=== PATIENT | male | born 1990 | race Caucasian/White ===

== ENCOUNTER 2019-02-11 03:35 | Emergency (ER) | payer MEDICAID, SELFPAY ==
[2019-02-11 03:41] VITALS: BP 128/87; PULSE 84; RESP 20; TEMP 36.1; O2SAT 98
[2019-02-11 03:48] VITALS: RESP 20
--- NOTE | 2019-02-11 04:02 | W.ED.GENAD ---
Discharge Plan Disposition Patient Disposition: HOME Condition: Good Discharge Details Chief Complaint: Cellulitis Clinical Impression: Abscess, perirectal Primary Care Provider: Ray Yanez ED Provider: Paul Angel [place] Meds and New Rx's Prescriptions: New acetaminophen 500 mg capsule 1,000 mg PO Q6H PRN (Reason: pain) Qty: 30 RF: 0 sulfamethoxazole-trimethoprim 800-160 mg tablet 1 tab PO BID Qty: 20 RF: 0 Changed ibuprofen 200 MG tablet 600 mg PO Q6H PRNQty: 0 RF: 0 Discontinued acetaminophen 650 MG tablet extended release 1 tab PO PRN PRNRF: 0 Discharge Instructions Additional Instructions: Use warm compresses and sitz bath over the weekend. Ibuprofen and acetaminophen as directed for pain. Bactrim twice a day for infection. Follow-up with surgery on Wednesday. Return to ED at any time if increased pain, fever, shakes, other concerns. Referrals: Sharon Borja MD [ [facility] STAFF PHYSICIAN] - Medical Decision Making Patient presents with what is likely a perirectal abscess. He describes previously having what sounds like a pilonidal cyst, but subsequently all of his pain and swelling has been in the perirectal area. He has no obvious external swelling or fluctuance but has significant tenderness and cannot tolerate AMBROSE. Has no history of inflammatory bowel disease. Will obtain pelvic CT with IV contrast to evaluate the extent of what I feel is a probable perirectal abscess. Patient was given Toradol for discomfort. 5:15 - CT scan shows a 3 x 1 x 2.5 cm collection likely abscess. I spoke to radiology directly and he felt that likely area would drain something if opened. Discussed options with patient. He needs to go to work today and wants to see if it will open on own again like in the past. Discussed risk of not opening an abscess and patient getting sicker and septic. Patient understand. He also reports that once in the past, he was seen over at [facility] after abscess opened and they sent the drainage for culture. He reports that this grew out MRSA and he was switched to Bactrim. I discussed case with surgery, Dr. Borja. Patient will be started on Bactrim this morning. He is asked to use warm compresses and Sitz baths. He will use Tylenol and Motrin for pain as he plans on working today. Will have him follow up with surgery on Wednesday. Return to ED over the weekend if worse. HPI General Mode of arrival: ambulatory. Date/Time Provider Initiated Documentation: 02/11/19 03:44. Limitations to Documentation: no limitations. Information obtained by: patient. HPI Narrative: Patient presents to ED with complaint of rectal pain. Patient reports similar problem in the past. Last time this occurred was in the fall. He actually drove to the ED but by the time he got here the area had opened up and drained on its own. He states that it recurred in the last 2 days. He had thought initially that it was related to being constipated and needing to strain to go to the bathroom. He cannot sleep because of pain and he came in this morning for evaluation. He denies any fevers. He denies any abdominal pain. He denies any diarrhea. He has no history of Crohn's or ulcerative colitis. He has not had this evaluated previously. Related Data Home Medications Medication Instructions Recorded Confirmed acetaminophen 1,000 mg PO Q6H PRN #30 cap 02/11/19 ibuprofen 600 mg PO Q6H PRN #0 tab 02/11/19 02/11/19 sulfamethoxazole-trimethoprim 1 tab PO BID #20 tab 02/11/19 Previous Rx's Medication Instructions Recorded acetaminophen 1,000 mg PO Q6H PRN #30 cap 02/11/19 ibuprofen 600 mg PO Q6H PRN #0 tab 02/11/19 sulfamethoxazole-trimethoprim 1 tab PO BID #20 tab 02/11/19 Allergies Allergy/AdvReac Type Severity Reaction Status Date / Time No Known Allergies Allergy Unverified 02/11/19 03:47 General Stated Complaint: GenMedical CARLY: 4 Review of Systems Review of Systems As documented in HPI otherwise negative as below. Const: no fever, chills, weakness Resp: no cough, SOB, pleuritic pain CV: no CP, diaphoresis, edema, syncope GI: no abdominal pain, nausea, vomiting, diarrhea Neuro: no headache, numbness, focal weakness, confusion PFSH Surgical History S/P ORIF (open reduction internal fixation) fracture (Inactive) Social History Smoking/Tobacco Use Status: Current every day Tobacco Type: cigarettes Alcohol Intake: current Alcohol Intake frequency: a few times a month Drug use: Occasionally Substance use type: marijuana Do you feel safe at home: Yes Do you feel safe in your relationship?: Yes Exam Narrative Exam Narrative: Const: WDWN male in NAD. HEENT: NC/AT. Eyes: Normal conjunctiva and sclera. Neck: Supple. Trachea midline. GI: Soft. NT/ND. No guarding or rebound. Tender to palpation in the left superior lea-rectal area. No external hemrrhoid appreciated. No obvious swelling/fluctuance. Not able to tolerate AMBROSE. Neuro: A+O x 3. CN grossly in tact. Good strength and no focal deficit. Ext: No C/C/E. No deformity or tenderness. Skin: Warm and dry without rash. Course Vital Signs Temperature 97 F L 02/11/19 03:41 Pulse 84 02/11/19 03:41 Respiratory Rate 20 02/11/19 03:41 Blood Pressure 128/87 02/11/19 03:41 Pulse Oximetry 98 02/11/19 03:41 Temperature 97 F L 02/11/19 03:41 Temperature Source Temporal Artery Scan 02/11/19 03:41 Pulse 84 02/11/19 03:41 Respiratory Rate 20 02/11/19 03:48 Respiratory Effort 02/11/19 03:48 Blood Pressure 128/87 02/11/19 03:41 Blood Pressure Position Sitting 02/11/19 03:41 Pulse Oximetry 98 02/11/19 03:41 Oxygen Delivery Method Room Air 02/11/19 03:41 Oxygen Flow Rate 0 02/11/19 03:41 Pain Level 8 02/11/19 03:41
[2019-02-11] MEDS: Lactated Ringers 1,000 ML 200 ML IV (04:10)
--- NOTE | 2019-02-11 04:12 | ED.GENADUL_ITS ---
Discharge Plan Disposition Patient Disposition: HOME Condition: Good Discharge Details Chief Complaint: Cellulitis Clinical Impression: Abscess, perirectal Primary Care Provider: Ray Yanez ED Provider: Paul Angel [place] Meds and New Rx's Prescriptions: New acetaminophen 500 mg capsule 1,000 mg PO Q6H PRN (Reason: pain) Qty: 30 RF: 0 sulfamethoxazole-trimethoprim 800-160 mg tablet 1 tab PO BID Qty: 20 RF: 0 Changed ibuprofen 200 MG tablet 600 mg PO Q6H PRNQty: 0 RF: 0 Discontinued acetaminophen 650 MG tablet extended release 1 tab PO PRN PRNRF: 0 Discharge Instructions Additional Instructions: Use warm compresses and sitz bath over the weekend. Ibuprofen and acetaminophen as directed for pain. Bactrim twice a day for infection. Follow-up with surgery on Wednesday. Return to ED at any time if increased pain, fever, shakes, other concerns. Referrals: Sharon Borja MD [ [facility] STAFF PHYSICIAN] - Medical Decision Making Patient presents with what is likely a perirectal abscess. He describes previously having what sounds like a pilonidal cyst, but subsequently all of his pain and swelling has been in the perirectal area. He has no obvious external swelling or fluctuance but has significant tenderness and cannot tolerate AMBROSE. Has no history of inflammatory bowel disease. Will obtain pelvic CT with IV contrast to evaluate the extent of what I feel is a probable perirectal abscess. Patient was given Toradol for discomfort. 5:15 - CT scan shows a 3 x 1 x 2.5 cm collection likely abscess. I spoke to radiology directly and he felt that likely area would drain something if opened. Discussed options with patient. He needs to go to work today and wants to see if it will open on own again like in the past. Discussed risk of not opening an abscess and patient getting sicker and septic. Patient understand. He also reports that once in the past, he was seen over at [facility] after abscess opened and they sent the drainage for culture. He reports that this grew out MRSA and he was switched to Bactrim. I discussed case with surgery, Dr. Borja. Patient will be started on Bactrim this morning. He is asked to use warm compresses and Sitz baths. He will use Tylenol and Motrin for pain as he plans on working today. Will have him follow up with surgery on Wednesday. Return to ED over the weekend if worse. HPI General Mode of arrival: ambulatory . Date/Time Provider Initiated Documentation: 02/11/19 03:44 . Limitations to Documentation: no limitations . Information obtained by: patient . HPI Narrative: Patient presents to ED with complaint of rectal pain. Patient reports similar problem in the past. Last time this occurred was in the fall. He actually drove to the ED but by the time he got here the area had opened up and drained on its own. He states that it recurred in the last 2 days. He had thought initially that it was related to being constipated and needing to strain to go to the bathroom. He cannot sleep because of pain and he came in this morning for evaluation. He denies any fevers. He denies any abdominal pain. He denies any diarrhea. He has no history of Crohn's or ulcerative colitis. He has not had this evaluated previously. Related Data Home Medications Medication Instructions Recorded Confirmed acetaminophen 1,000 mg PO Q6H PRN #30 cap 02/11/19 ibuprofen 600 mg PO Q6H PRN #0 tab 02/11/19 02/11/19 sulfamethoxazole-trimethoprim 1 tab PO BID #20 tab 02/11/19 Previous Rx's Medication Instructions Recorded acetaminophen 1,000 mg PO Q6H PRN #30 cap 02/11/19 ibuprofen 600 mg PO Q6H PRN #0 tab 02/11/19 sulfamethoxazole-trimethoprim 1 tab PO BID #20 tab 02/11/19 Allergies Allergy/AdvReac Type Severity Reaction Status Date / Time No Known Allergies Allergy Unverified 02/11/19 03:47 General Stated Complaint: GenMedical CARLY: 4 Review of Systems Review of Systems As documented in HPI otherwise negative as below. Const: no fever, chills, weakness Resp: no cough, SOB, pleuritic pain CV: no CP, diaphoresis, edema, syncope GI: no abdominal pain, nausea, vomiting, diarrhea Neuro: no headache, numbness, focal weakness, confusion PFSH Surgical History S/P ORIF (open reduction internal fixation) fracture (Inactive) Social History Smoking/Tobacco Use Status: Current every day Tobacco Type: cigarettes Alcohol Intake: current Alcohol Intake frequency: a few times a month Drug use: Occasionally Substance use type: marijuana Do you feel safe at home: Yes Do you feel safe in your relationship?: Yes Exam Narrative Exam Narrative: Const: WDWN male in NAD. HEENT: NC/AT. Eyes: Normal conjunctiva and sclera. Neck: Supple. Trachea midline. GI: Soft. NT/ND. No guarding or rebound. Tender to palpation in the left superior lea-rectal area. No external hemrrhoid appreciated. No obvious swelling/fluctuance. Not able to tolerate AMBROSE. Neuro: A+O x 3. CN grossly in tact. Good strength and no focal deficit. Ext: No C/C/E. No deformity or tenderness. Skin: Warm and dry without rash. Course Vital Signs Temperature 97 F L 02/11/19 03:41 Pulse 84 02/11/19 03:41 Respiratory Rate 20 02/11/19 03:41 Blood Pressure 128/87 02/11/19 03:41 Pulse Oximetry 98 02/11/19 03:41 Temperature 97 F L 02/11/19 03:41 Temperature Source Temporal Artery Scan 02/11/19 03:41 Pulse 84 02/11/19 03:41 Respiratory Rate 20 02/11/19 03:48 Respiratory Effort 02/11/19 03:48 Blood Pressure 128/87 02/11/19 03:41 Blood Pressure Position Sitting 02/11/19 03:41 Pulse Oximetry 98 02/11/19 03:41 Oxygen Delivery Method Room Air 02/11/19 03:41 Oxygen Flow Rate 0 02/11/19 03:41 Pain Level 8 02/11/19 03:41
[2019-02-11] MEDS: Ketorolac 30 MG/ML VIAL IVP (04:15)
--- NOTE | 2019-02-11 04:36 | DI.CT_ITS ---
SYMPTOM/DIAGNOSIS: PERIRECTAL ABSCESS PELVIC CT: CT examination of the pelvic region was performed with intravenous infusion of 100 cc's of Omnipaque 350. There is reportedly a suspicion of a perirectal abscess. There is in fact a thick walled rim enhancing collection in left posterior lea-anal soft tissue with probable adjacent fat edema. The findings are suspicious for an abscess, this measures about 3.0 by 1.0 by 2.5 cm. in diameter. No gross pelvic adenopathy is seen although slight prominence of inguinal lymph nodes is noted. No evidence of bowel obstruction. Urinary bladder appears intact. Vascular structures appear intact. No abnormality of the bony pelvis identified. CONCLUSION: Findings suggesting left posterior lea-anal/lea-rectal abscess as described above, maximum diameter about 3 cm.
[2019-02-11] MEDS: Omnipaque 350 MG/ML 100 ML BTL IJ (04:40)
--- NOTE | 2019-02-11 04:44 | DI.VRAD_ITS ---
EXAM: CT Pelvis With Contrast EXAM DATE/TIME: 02/11/2019 4:02 AM CLINICAL HISTORY: 28 years old, male; Signs and symptoms; Other: Kerri-rectal abcess TECHNIQUE: Imaging protocol: Axial computed tomography images of the pelvis with intravenous contrast. Coronal and sagittal reformatted images were created and reviewed. Radiation optimization: All CT scans at this facility use at least one of these dose optimization techniques: automated exposure control; mA and/or kV adjustment per patient size (includes targeted exams where dose is matched to clinical indication); or iterative reconstruction. Contrast material: [id number] Contrast volume: 100 ml Contrast route: iv COMPARISON: No relevant prior studies available. FINDINGS: Stomach and bowel: Visualized small bowel and colon are unremarkable. Appendix: No evidence of appendicitis. Bladder: Normal. No mass. Reproductive: Normal as visualized. Intraperitoneal space: Unremarkable. No free air. No significant fluid collection. Lymph nodes: Unremarkable. No enlarged lymph nodes. Bones/joints: Unremarkable. No acute fracture. No dislocation. Soft tissues: 3.0 x 1.0 x 2.3 cm rim-enhancing collection in the left posterior perianal soft tissue with adjacent infiltration, suspicious for developing abscess. IMPRESSION: 3.0 x 1.0 x 2.3 cm rim-enhancing collection in the left posterior perianal soft tissue with adjacent infiltration, suspicious for developing abscess. Dictated and Authenticated by: Tyler Leone MD. Ordering:VIRGINIA Miller MD
[2019-02-11] MEDS: Sulfameth/Trimeth DS TAB 1 TAB PO (05:24)
--- NOTE | 2019-02-11 08:38 | NUR.NOTE ---
Faxed referral request to general surgery. Nursing Note:
--- NOTE | 2019-02-13 09:44 | NUR.NOTE ---
Nursing Note: Faxed referral to General Surgery for follow up. Leigha Rose.
== END 2019-02-11 05:32 | disposition home or self-care (01) ==
PROVIDERS: Emergency Provider Emergency Medicine; PCP General Practice
DX: K61.1 Rectal abscess (principal)
CPT/HCPCS: 96361; 96374; 99285; 72193; 99284; J1885; J3490

== ENCOUNTER 2019-02-12 18:04 | Emergency (ER) | payer MEDICAID, SELFPAY ==
[2019-02-12 18:11] VITALS: BP 129/62; PULSE 111; RESP 20; TEMP 36.7; O2SAT 99
--- NOTE | 2019-02-12 18:40 | W.ED.GENAD ---
Discharge Plan Disposition Patient Disposition: HOME Condition: Stable Discharge Details Chief Complaint: RashLesion Clinical Impression: Kerri-rectal abscess Primary Care Provider: Ray Yanez ED Provider: Jonelle Arnold Home Meds and New Rx's Prescriptions: Continued acetaminophen 500 mg capsule 1,000 mg PO Q6H PRN (Reason: pain) Qty: 30 RF: 0 sulfamethoxazole-trimethoprim 800-160 mg tablet 1 tab PO BID Qty: 20 RF: 0 ibuprofen 200 MG tablet 600 mg PO Q6H PRNQty: 0 RF: 0 Discharge Instructions Instructions: Abscess (ED), Rectal Abscess (ED), Abscess Incision and Drainage (GEN) Additional Instructions: Alternate Tylenol and Motrin as needed and directed for pain. Take your antibiotics until finished. Call surgery tomorrow morning to schedule a follow-up appointment for reevaluation tomorrow. You will receive a call from care management regarding this follow-up appointment. Return immediately to the emergency department with any worsening or new concerning symptoms. Referrals: Sharon Borja MD [ [facility] STAFF PHYSICIAN] - Discharge Data Discharge Date/Time-TO BE ENTERED AT DEPARTURE: 02/12/19 20:09 Discharge Physician: Jonelle Arnold Medical Decision Making 28-year-old male who presents with left periranal/perirectal abscess for the past 4 days. Was seen here yesterday morning for the same complaint and was noted to have a perirectal abscess on CT and was offered I&D but declined and was told to return if worse. He was given a prescription for Bactrim. States the area is becoming more painful and larger. Denies fevers, vomiting or abdominal pain. Pelvic CT from 02/11/19 showed suspicion of a perirectal abscess. There is in fact a thick walled rim enhancing collection in left posterior kerri-anal soft tissue with probable adjacent fat edema. The findings are suspicious for an abscess, this measures about 3.0 by 1.0 by 2.5 cm. in diameter. Patient is noted to have an approximate 1 x 1.5 cm fluctuant abscess to the left of the rectum within the left inner buttock. Abdomen soft nontender. Afebrile. Patient appears nontoxic. Case discussed with Dr. Borja and she recommends either incision and drainage in the emergency department or patient can follow-up with this tomorrow in the office. Patient is requesting I&D at this time due to pain. The area was anesthetized with 1% lidocaine without epinephrine, incision made with 11 blade and a large amount of pus expressed. Area was irrigated and packed with iodoform. Patient instructed to finish the prescription for Bactrim. Patient placed on care management list to help arrange for appointment with surgery tomorrow for evaluation. Patient is still instructed to call the surgery office tomorrow. HPI General Mode of arrival: ambulatory. Date/Time Provider Initiated Documentation: 02/12/19 18:18. Limitations to Documentation: no limitations. Information obtained by: patient. HPI Narrative: Pt is a 28-year-old male who presents with left periranal/perirectal abscess for the past 4 days. Pt was seen here yesterday morning for the same complaint and was noted to have a perirectal abscess on CT and was offered I&D but declined and was told to return if worse. He was given a prescription for Bactrim which he states he has been taking. Pt states the area has been becoming more painful and larger and would like an I & D at this time. States his last bowel movement was today and was within normal limits. He denies fever, nausea, vomiting, abdominal pain, diarrhea or rectal bleeding. Related Data Home Medications Medication Instructions Recorded Confirmed acetaminophen 1,000 mg PO Q6H PRN #30 cap 02/11/19 02/12/19 ibuprofen 600 mg PO Q6H PRN #0 tab 02/11/19 02/12/19 sulfamethoxazole-trimethoprim 1 tab PO BID #20 tab 02/11/19 02/12/19 Previous Rx's Medication Instructions Recorded acetaminophen 1,000 mg PO Q6H PRN #30 cap 02/11/19 ibuprofen 600 mg PO Q6H PRN #0 tab 02/11/19 sulfamethoxazole-trimethoprim 1 tab PO BID #20 tab 02/11/19 Allergies Allergy/AdvReac Type Severity Reaction Status Date / Time No Known Allergies Allergy Unverified 02/12/19 18:13 General Stated Complaint: RashLesion CARLY: 4 Review of Systems Review of Systems All systems reviewed & are unremarkable except as noted in HPI and below Constitutional Reports as per HPI, Denies chills and Denies fever(s) Eyes Denies blurry vision ENT Denies dizziness, Denies sore throat and Denies throat swelling Cardiovascular Denies chest pain and Denies dyspnea Respiratory Denies cough and Denies dyspnea Gastrointestinal Denies abdominal pain, Denies diarrhea and Denies vomiting Genitourinary Denies hematuria and Denies dysuria Musculoskeletal Denies back pain and Denies numbness Integumentary/Breasts Reports lesions and Denies rash Neurologic Denies dizziness, Denies focal weakness and Denies numbness Allergic/Immunologic Denies throat swelling [facility] Surgical History S/P ORIF (open reduction internal fixation) fracture (Inactive) Social History Smoking/Tobacco Use Status: Current every day Tobacco Type: cigarettes Alcohol Intake: current Alcohol Intake frequency: a few times a month Drug use: Occasionally Substance use type: marijuana Do you feel safe at home: Yes Do you feel safe in your relationship?: Yes Exam Const General: cooperative, healthy appearing and no acute distress HENMT Head: normal to inspection Face and sinus: normal facial exam Eyes General: appearance normal, both eyes and all related structures EOM: EOM intact bilaterally Neck Neck: normal visual inspection Chest Chest: normal inspection of the chest and no tenderness Resp Effort & Inspection: normal respiratory effort and able to speak in complete sentences Auscultation: clear to auscultation bilaterally Cardio Rate: regular rate Rhythm: regular rhythm GI Inspection: normal to inspection Palpation: soft, not firm, not rigid and nontender Auscultation: normal bowel sounds Back/Spine/Pelvis Back/spine/pelvis image: 1. 1x1.5cm of tenderness, fluctuance, and erythema just to the left of anus in L inner buttock. No red streaking. No drainage or bleeding. Skin General skin exam: no rashes or lesions noted Neuro General: alert, awake and oriented x3 Cognition: normal cognition Speech: speech normal Motor: muscle tone normal throughout Sensory Exam: no sensory deficits noted Extrem General: normal to inspection, full ROM and no edema Psych Appearance: grossly normal Mental Status: mental status grossly normal Speech and Movement: speech and movement normal Affect: normal affect Course Vital Signs Temperature 98.1 F 02/12/19 18:11 Pulse 111 H 02/12/19 18:11 Respiratory Rate 20 02/12/19 18:11 Blood Pressure 129/62 02/12/19 18:11 Pulse Oximetry 99 02/12/19 18:11 Temperature 98.1 F 02/12/19 18:11 Temperature Source Temporal Artery Scan 02/12/19 18:11 Pulse 111 H 02/12/19 18:11 Respiratory Rate 20 02/12/19 18:11 Respiratory Effort Non-Labored 02/12/19 18:11 Blood Pressure 129/62 02/12/19 18:11 Blood Pressure Position Sitting 02/12/19 18:11 Pulse Oximetry 99 02/12/19 18:11 Oxygen Delivery Method Room Air 02/12/19 18:11 Oxygen Flow Rate 0 02/12/19 18:11 Pain Level 9 02/12/19 18:11
[2019-02-12 20:08] VITALS: BP 115/56; PULSE 92; RESP 20; TEMP 36.5; O2SAT 98
--- NOTE | 2019-02-13 10:07 | NUR.NOTE ---
Nursing Note: Faxed to General Surgery the referral for follow up. Leigha Rose.
== END 2019-02-12 20:09 | disposition home or self-care (01) ==
PROVIDERS: Emergency Provider Physician Assistant; PCP General Practice
DX: K61.1 Rectal abscess (principal)
CPT/HCPCS: 10061

== ENCOUNTER 2020-06-05 08:09 | Emergency (ER) | payer MEDICAID, SELFPAY ==
--- NOTE | 2020-06-05 08:23 | NUR.NOTE ---
Nursing Note: Pt checked in and then went into visitor bathroom. Pt in there for 10 min- knocked on door and pt states he was ok. Asked access to notify staff when pt returns to ER waiting room.
--- NOTE | 2020-06-05 08:26 | ED.GENADUL_ITS ---
Discharge Plan Disposition Patient Disposition: HOME Condition: Stable Discharge Details Chief Complaint: Cellulitis Clinical Impression: Abscess of forearm, right Primary Care Provider: None,None ED Provider: Jonelle Arnold Home Meds and New Rx's Prescriptions: New sulfamethoxazole-trimethoprim [Bactrim DS] 800-160 mg tablet 2 tab PO BID 7 Days Qty: 28 RF: 0 Continued acetaminophen 500 mg capsule 1,000 mg PO Q6H PRN (Reason: pain) Qty: 30 RF: 0 ibuprofen 200 MG tablet 600 mg PO Q6H PRNQty: 0 RF: 0 Discharge Instructions Instructions: Abscess (ED) Additional Instructions: Drink plenty of fluids and get plenty of rest. Alternate tylenol and motrin as needed and directed for pain. Take the antibiotics until finished. Return to the emergency department in 2 days for wound check and packing removal or change. Return immediately to the emergency department at any time if you develop any fever, increased redness, pain or swelling. Discharge Data Discharge Date/Time-TO BE ENTERED AT DEPARTURE: 06/05/20 09:18 Discharge Physician: Jonelle Arnold Medical Decision Making 29-year-old male presents for right forearm abscess for the past 2 days, getting progressively worse. Denies fever. Heart rate 110s on arrival. Afebrile. He has a 2 x 2 centimeter fluctuant abscess with a 4 cm surrounding area of erythema and induration noted on right proximal dorsolateral forearm. Bedside ultrasound confirmed loculated material. Area was cleaned with Betadine and anesthetized locally with 1% lidocaine with epinephrine. A large amount of purulent material was expressed. Area was irrigated with normal saline and packed with quarter inch iodoform gauze and covered with 4 x 4 dressing and Kerlix. Patient was given an 2 tabs of Bactrim here as well as prescription. He was advised to return here in 2 days for packing removal versus change. He was advised on importance of avoiding further IV drug use and proper wound care. HPI General Mode of arrival: ambulatory . Date/Time Provider Initiated Documentation: 06/05/20 08:11 . Limitations to Documentation: no limitations . Information obtained by: patient . HPI Narrative: Patient is a 29-year-old male w/ a h/o IV drug abuse who presents to the ED w/ a c/o right forearm abscess for the past 2 days, much worse since this morning. Patient injects IV heroin into his extremities and last injected in this area in the last couple days. He denies any fever. He denies any history of allergy to antibiotics. Related Data Home Medications Medication Instructions Recorded Confirmed acetaminophen 1,000 mg PO Q6H PRN #30 cap 02/11/19 06/05/20 ibuprofen 600 mg PO Q6H PRN #0 tab 02/11/19 06/05/20 sulfamethoxazole-trimethoprim 2 tab PO BID 7 Days #28 tab 06/05/20 [Bactrim DS] Previous Rx's Medication Instructions Recorded acetaminophen 1,000 mg PO Q6H PRN #30 cap 02/11/19 ibuprofen 600 mg PO Q6H PRN #0 tab 02/11/19 sulfamethoxazole-trimethoprim 2 tab PO BID 7 Days #28 tab 06/05/20 [Bactrim DS] Allergies Allergy/AdvReac Type Severity Reaction Status Date / Time No Known Allergies Allergy Unverified 06/05/20 08:30 General CARLY: 4 Review of Systems All systems reviewed & are unremarkable except as noted in HPI and below Constitutional Constitutional: Reports as per HPI, Denies chills and Denies fever(s) Eyes Eyes: Denies blurry vision ENT Ears, Nose, Mouth, and Throat: Denies dizziness, Denies sore throat and Denies throat swelling Cardiovascular Cardiovascular: Denies chest pain and Denies dyspnea Respiratory Respiratory: Denies cough and Denies dyspnea Gastrointestinal Gastrointestinal: Denies abdominal pain, Denies diarrhea and Denies vomiting Genitourinary Genitourinary: Denies hematuria and Denies dysuria Musculoskeletal Musculoskeletal: Denies back pain and Denies numbness Integumentary/Breasts Skin/Breast: Reports lesions and Denies rash Neurologic Neurologic: Denies dizziness, Denies localized weakness and Denies numbness Allergic/Immunologic Allergic/Immunologic: Denies throat swelling PFSH Surgical History S/P ORIF (open reduction internal fixation) fracture (Inactive) right tib/fib Social History Smoking/Tobacco Use Status: Current every day Tobacco Type: cigarettes Alcohol Intake: current Alcohol Intake frequency: a few times a month Drug use: Occasionally Substance use type: heroin, amphetamines, hallucinogens and prescription drug Do you feel safe at home: Yes Do you feel safe in your relationship?: Yes Exam Const General: cooperative, healthy appearing and no acute distress HENMT Head: normal to inspection Face and sinus: normal facial exam Eyes General: appearance normal, both eyes and all related structures Pupils: PERRL EOM: EOM intact bilaterally Neck Neck: normal visual inspection and No submandibular swelling Lymphatic: no lymphadenopathy noted Chest Chest: normal inspection of the chest and no tenderness Resp Effort & Inspection: normal respiratory effort and able to speak in complete sentences Auscultation: clear to auscultation bilaterally Cardio Rate: regular rate Rhythm: regular rhythm GI Inspection: normal to inspection Palpation: soft, not firm, not rigid and nontender Auscultation: normal bowel sounds Male General Exam: Yes normal external exam Back/Spine/Pelvis Thoracic/Lumbar Spine: thoracic and lumbar spine normal to inspection Pelvis: no pain with anterior-posterior compression Skin General skin exam: no rashes or lesions noted Neuro General: patient alert, patient awake, patient oriented x3 and no focal motor deficits Cognition: normal cognition Speech: speech normal Motor: muscle tone normal throughout and strength 5/5 throughout Sensory Exam: no sensory deficits noted Extrem General: full ROM and capillary refill normal Elbow/forearm/wrist images: 1. 2 x 2 cm area of tender erythematous fluctuance surrounded by a 4 x 4 centimeter area of induration located on right proximal dorsolateral forearm. Other: Right radial and ulnar pulses intact. Psych Appearance: grossly normal Mental Status: mental status grossly normal Speech and Movement: speech and movement normal Affect: normal affect Procedures Abscess I/D Site: Upper Extremity (forearm) Side (if applicable): Right Local Anesthetic: Lidocaine 1% and With Epi Amount of anesthesia used (mL): 10 Technique: Incised with #11 Blade Amount of fluid expressed (mL): 5 (initially purulent then serous and bloody) Irrigation: Yes Packing used?: Iodoform
[2020-06-05 08:27] VITALS: BP 131/77; PULSE 111; RESP 20; TEMP 36.6; O2SAT 98
[2020-06-05] MEDS: Sulfameth/Trimeth DS TAB 2 TAB PO (09:16)
== END 2020-06-05 09:18 | disposition home or self-care (01) ==
PROVIDERS: Emergency Provider Physician Assistant
DX: L02.413 Cutaneous abscess of right upper limb (principal); F11.10 Opioid abuse, uncomplicated
CPT/HCPCS: 10061

== ENCOUNTER 2020-09-29 12:26 | Emergency (ER) | payer MEDICAID, SELFPAY ==
[2020-09-29 12:37] VITALS: BP 112/74; PULSE 87; RESP 20; TEMP 36.9; O2SAT 93
--- NOTE | 2020-09-29 12:52 | ED.GENADUL_ITS ---
Discharge Plan Disposition Patient Disposition: HOME Condition: Improving Discharge Details Clinical Impression: Gastroesophageal reflux disease, Transaminitis Primary Care Provider: None,None ED Provider: Alexis Kim Home Meds and New Rx's Prescriptions: New pantoprazole [Protonix] 20 mg tablet,delayed release (DR/EC) 20 mg PO DAILY Qty: 30 RF: 0 Discontinued acetaminophen 500 mg capsule 1,000 mg PO Q6H PRN (Reason: pain) Qty: 30 RF: 0 ibuprofen 200 MG tablet 600 mg PO Q6H PRNQty: 0 RF: 0 Discharge Instructions Instructions: GERD (Gastroesophageal Reflux Disease) (ED) Additional Instructions: Return tomorrow and obtain outpatient ultrasound as we discussed. They will then refer you to the ER for final results. Please minimize the use of acetaminophen which can be hard on the liver as well as ibuprofen which can be hard on the stomach. Take Protonix as prescribed. Avoid fatty, fried, spicy, tomato-based foods. Avoid eating 2 hours prior to bedtime. May use Tums available [id number] for persistent discomfort. Return if you develop a fever or any other acute concerns in the interim. We will ask our care management team to arrange a follow-up for you to establish primary care. Medical Decision Making 29-year-old male presents with intermittent episodes of epigastric to left upper quadrant pain that begins after eating. This occurred for 4 to 5 days. 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 He states that his symptoms began antecedent to this. He has been using daily IV opiates. Vital signs are normal, tender in epigastrium and left upper quadrant. Differential diagnosis includes gastritis, duodenal ulcer, pancreatitis, biliary colic. Patient IV access established, given Protonix and GI cocktail. Referred for laboratory testing. Given his Covid exposure, out of an abundance of caution, a COVID-19 test was sent. The patient's labs reveal a white count of 6, hematocrit 39, platelets 234. Chemistries unremarkable. LFTs reveal a total bili of 0.7, AST 61, ALT 231, alk phos 119, lipase 40. I have ordered an outpatient follow-up right upper quadrant ultrasound for the patient. Seems more consistent with a mild hepatitis then with obstructive biliary pathology. He was interviewed by the baseball coach. We will ask specialist wound care to arrange outpatient follow-up for him. I will place him on Protonix for GERD. He is stable and improved at this time. HPI General Mode of arrival: ambulatory . Date/Time Provider Initiated Documentation: 09/29/20 12:26 . Limitations to Documentation: no limitations . Information obtained by: patient . History of Present Illness 29 year old M presents to the emergency department with the chief complaint of Epigastric and left upper quadrant pain after eating, described as moderate, and is localized to the abdomen and left. Patient reports no radiation. Patient started experiencing this day(s) and it has been intermittent. Rest improves symptom(s), Eating worsens symptoms . Patient notes loss of appetite; denies fever/chills. Patient did receive the following treatments prior to arrival, none Related Data Home Medications Medication Instructions Recorded Confirmed pantoprazole [Protonix] 20 mg PO DAILY #30 tab 09/29/20 Previous Rx's Medication Instructions Recorded pantoprazole [Protonix] 20 mg PO DAILY #30 tab 09/29/20 Allergies Allergy/AdvReac Type Severity Reaction Status Date / Time No Known Allergies Allergy Unverified 09/29/20 12:44 General Stated Complaint: GenMedical CARLY: 3 Review of Systems Narrative: Active IV drug use, smokes approximately 1 pack/day, drinks soda. Minimal caffeine or energy drinks. Denies alcohol use. No bloody emesis or stool. Was in contact with Covid positive employees at the [facility] house after symptoms began. No cough or fever. 8 systems reviewed and otherwise negative PFSH Surgical History S/P ORIF (open reduction internal fixation) fracture right tib/fib Social History Smoking/Tobacco Use Status: Current every day Tobacco Type: cigarettes Smoking risk assessment performed?: Yes Alcohol Intake: current Alcohol Intake frequency: a few times a month Drug use: Occasionally Substance use type: marijuana, crack/cocaine, heroin, amphetamines, hallucinogens and prescription drug Details: Current IVDA Do you feel safe at home: Yes Do you feel safe in your relationship?: Yes Exam Narrative Exam Narrative: GEN: awake, alert, oriented 3. Pleasant, well groomed, interactive. HEAD: Normocephalic, atraumatic ENT: Mucous membranes moist,External ear exam unremarkable EYES: PERRL, EOMI NECK: Full ROM, no HUNTER, no menigismus CHEST/RESP: Nontender, clear to auscultation bilateral, no wheeze/rhonchi/rales CARDIOVASCULAR: RRR, no murmur, rub ariana. 2+ Rad pulse bilateral ABDOMEN: Soft, tender left upper quadrant and epigastrium, no mass. +Bowel sounds EXT: Full ROM, no edema, no rash Neuro: Grossly normal neurologic exam, conversant, interactive. Psych: Speech fluent, thoughts congruent, affect normal Course Vital Signs Vital signs: Vital Signs Temperature 36.9 C 09/29/20 12:37 Pulse 87 09/29/20 12:37 Respiratory Rate 20 09/29/20 12:37 Blood Pressure 112/74 09/29/20 12:37 Pulse Oximetry 93 09/29/20 12:37 Temperature 36.9 C 09/29/20 12:37 Temperature Source Skin 09/29/20 12:37 Pulse 87 09/29/20 12:37 Respiratory Rate 09/29/20 12:37 Respiratory Effort 09/29/20 12:41 Blood Pressure 112/74 09/29/20 12:37 Blood Pressure Position Sitting 09/29/20 12:37 Pulse Oximetry 93 09/29/20 12:37 Oxygen Delivery Method Room Air 09/29/20 12:37 Oxygen Flow Rate 0 09/29/20 12:37 Pain Level 0 09/29/20 12:37 Comment 09/29/20 12:37 Lab/Test Results Lab/Test Results: Laboratory Tests Range/Units 09/29/20 12:35 COVID-19 PCR Cancelled Nasopharyn COVID-19 PCR Cancelled Ref Test Perform Site Cancelled
[2020-09-29] MEDS: Normal Saline 1,000 ML 1000 ML IV (13:05)
[2020-09-29] MEDS: Pantoprazole 40 MG VIAL IVP (13:09)
[2020-09-29 13:13] LABS: Absolute Basophil Count 0.01 10^3/uL (0.0-0.2); Absolute Eosinophil Count 0.08 10^3/uL (0.0-0.7); Absolute Lymphocyte Count 1.14 10^3/uL (1.2-3.4); Absolute Monocyte Count 1.04 10^3/uL (0.1-0.8); Absolute Neutrophil Count 4.11 10^3/uL (1.2-6.7); Basophils % 0.2; Eosinophils % 1.3; HCT 39.5 % (40.0-50.0); HGB 13.2 g/dL (13.5-17.5); Lymphocytes % 17.9; MCH 29.5 pg (27.0-33.0); MCHC 33.4 % (32.0-36.0); MCV 88.4 fL (80-95); MPV 9.6 fL (8.0-11.0); Monocytes % 16.3; Neutrophils % 64.3; Nucleated RBC 0 %; Platelet Count 234 10^3/uL (130-400); RBC 4.47 10^6/uL (4.36-5.78); RDW 13.2 % (11.8-14.1); WBC 6.38 10^3/uL (4.4-10.8)
[2020-09-29 13:14] VITALS: RESP 20
[2020-09-29 13:25] LABS: ALT 231 U/L (16-63); AST 61 U/L (15-37); Albumin 3.4 g/dL (3.4-5.0); Alkaline Phosphatase 119 U/L (46-116); Anion Gap 6.7 mmol/L (3-11); BUN 17 mg/dL (7-18); Bilirubin, Total 0.7 mg/dL (0.2-1.0); CO2 28.3 mmol/L (21.0-32.0); Calcium 8.7 mg/dL (8.5-10.1); Chloride 102 mmol/L (98-107); Glucose 88 mg/dL (74-106); Lipase 40 U/L (73-393); Potassium 3.5 mmol/L (3.5-5.1); Sodium 137 mmol/L (136-145); Total Protein 7.6 g/dL (6.4-8.2)
--- NOTE | 2020-09-29 13:48 | NUR.NOTE ---
Nursing Note: Referral for Care Management to get pt PCP for follow up and establish care. Leigha Rose
[2020-10-01 02:14] LABS: SARS-CoV-2 RNA Undetected (Undetected); SARS-CoV-2 Specimen Source Nasopharynx
--- NOTE | 2020-10-01 08:48 | NUR.NOTE ---
unable to contact via phone numbers listed. Mailed negative covid test results to home address.
[2020-10-01 12:19] LABS: Hepatitis A Antibody IgM Negative (Negative); Hepatitis B Core Antibody Negative (Negative); Hepatitis B surface Ag Negative (Negative); Hepatitis C Ab w Rflx HCV PCR Reactive (Negative)
[2020-10-02 14:38] LABS: HCV RNA Detection Quantitative 2444 IU/mL (Undetected); HCV RNA Qualitative Detected (Undetected)
== END 2020-09-29 14:30 | disposition home or self-care (01) ==
PROVIDERS: Emergency Provider Emergency Medicine
DX: K21.9 Gastro-esophageal reflux disease without esophagitis (principal); R74.01 Elevation of levels of liver transaminase levels; R10.13 Epigastric pain; Z03.818 Encounter for observation for suspected exposure to other biological agents ruled out; F11.10 Opioid abuse, uncomplicated
CPT/HCPCS: 36415; 80053; 83690; 86704; 86709; 86803; 87340; 87522; 96361; 96374; 99284; U0003; 85025

== ENCOUNTER 2020-09-30 10:25 | Emergency (ER) | payer MEDICAID, SELFPAY ==
[2020-09-30 10:28] VITALS: BP 119/57; PULSE 79; RESP 16; TEMP 36.8; O2SAT 97
--- NOTE | 2020-09-30 11:15 | W.ED.GENAD ---
Discharge Plan Disposition Patient Disposition: HOME Condition: Stable Discharge Details Clinical Impression: Abdominal pain Primary Care Provider: None,None ED Provider: Enrrique Ramsey Home Meds and New Rx's Prescriptions: Continued pantoprazole [Protonix] 20 mg tablet,delayed release (DR/EC) 20 mg PO DAILY Qty: 30 RF: 0 Discharge Instructions Instructions: Abdominal Pain (ED) Additional Instructions: As we discussed the radiologist recommended a CT of your abdomen pelvis both with oral and IV contrast for further evaluation of your ultrasound. Unfortunately you have an appointment today and cannot await to have the test performed now. We discussed return to the ER for the study versus trying to set up an outpatient CT through your primary care provider once the care management does set you up with a primary care provider. My concern is that this may take too long so I do think return to the ER for CT imaging is likely the best option. Please watch for new or worsening symptoms and return to the ER for any concerns. Discharge Data Discharge Date/Time-TO BE ENTERED AT DEPARTURE: 09/30/20 11:30 Medical Decision Making 29-year-old gentleman seen in the ER yesterday for ongoing abdominal pain for the past 6 days, worse after eating. He was placed on Protonix, diagnosed with transaminitis, GERD. Have her ultrasound today. He reports that his symptoms are significantly better when compared to yesterday. He already had his outpatient ultrasound and is awaiting his results. I discussed the ultrasound results with radiology. Splenomegaly. In addition, there is a possible fluid collection adjacent to the spleen. No generalized ascites evident. Liver is prominent and is hyperechoic indicating steatosis. No discrete focal hepatic lesions identified. No dilatation of the biliary tree. Gallbladder sludge but no calculi. Pancreas is not well seen on this study due to overlying bowel gases. Recommend CT imaging of the abdomen and pelvis with both IV and oral contrast. I discussed the ultrasound results with patient. I discussed the recommendations of radiology. He states that he has an appointment today and cannot have the studies performed now. He reports that he is feeling significantly better when compared to yesterday. He was able to eat breakfast this morning without any vomiting or significant pain. We discussed options. I explained to the patient that I believe having the CT imaging for further evaluation of the potential fluid collection of the spleen is time sensitive and do recommend returning to the ER at his convenience. He is in the process of setting of a primary care provider and may decide to see how long obtaining an outpatient CT will take. He was encouraged to return to the ER for new or worsening symptoms. Patient today certainly appears well, nontoxic, is afebrile, pulse of 79, blood pressure 119/57. He has mild abdominal discomfort in the epigastric region but no guarding, rebound or rigidity. Medical Records Medical records reviewed: Yes I reviewed the patient's medical records. HPI General Mode of arrival: ambulatory. Date/Time Provider Initiated Documentation: 09/30/20 10:26. Limitations to Documentation: no limitations. Information obtained by: patient. HPI Narrative: This is a 29-year-old gentleman who denies significant past medical history presenting to the ER for ultrasound results. He was seen in the ER yesterday for abdominal pain and ultrasound as an outpatient set up today. He reports that his symptoms are significantly improved when compared to yesterday. He has been having abdominal pain worse after eating primarily in his epigastric region but does radiate across his upper abdomen, worse in the left side. He states this has been present for the past 5-6 days. He denies fever, vomiting, current alcohol abuse, dysuria, hematuria, diarrhea or constipation. He reports that he did drink alcohol heavily approximately 5 years ago. He is in the process of getting set up with a primary care provider. Patient was tested for Covid because he may have come into contact with someone who was positive. He denies any respiratory symptoms. Related Data Home Medications Medication Instructions Recorded Confirmed pantoprazole [Protonix] 20 mg PO DAILY #30 tab 09/29/20 09/30/20 Previous Rx's Medication Instructions Recorded pantoprazole [Protonix] 20 mg PO DAILY #30 tab 09/29/20 Allergies Allergy/AdvReac Type Severity Reaction Status Date / Time No Known Allergies Allergy Unverified 09/30/20 10:36 General Stated Complaint: Recheck CARLY: 4 Review of Systems Constitutional Constitutional: Denies fever(s) Cardiovascular Cardiovascular: Denies dyspnea Respiratory Respiratory: Denies cough and Denies dyspnea Gastrointestinal Gastrointestinal: Reports abdominal pain, Denies constipation, Denies diarrhea, Reports nausea and Denies vomiting Genitourinary Genitourinary: Denies dysuria Musculoskeletal Musculoskeletal: Denies back pain PFSH Surgical History S/P ORIF (open reduction internal fixation) fracture right tib/fib Social History Smoking/Tobacco Use Status: Current every day Tobacco Type: cigarettes Smoking risk assessment performed?: Yes Alcohol Intake: current Alcohol Intake frequency: a few times a month Drug use: Occasionally Substance use type: marijuana, crack/cocaine, heroin, amphetamines, hallucinogens and prescription drug Details: Current IVDA Do you feel safe at home: Yes Do you feel safe in your relationship?: Yes Exam Const General: cooperative, healthy appearing, comfortable and no acute distress Orientation: alert and awake [facility] Head: normal to inspection, normocephalic and atraumatic Eyes General: appearance normal, both eyes and all related structures Conjunctivae: conjunctivae normal Sclera: sclerae normal Neck Neck: normal visual inspection, full ROM, trachea midline and supple Resp Effort & Inspection: normal respiratory effort and able to speak in complete sentences Auscultation: clear to auscultation bilaterally Cardio Rate: regular rate Rhythm: regular rhythm GI Inspection: normal to inspection Palpation: soft, not firm, no guarding and tender in the epigastrum (Minimal to moderate palpation); with no rebound tenderness Auscultation: normal bowel sounds Back/Spine/Pelvis Back: back tenderness Skin General skin exam: no rashes or lesions noted Neuro General: patient alert, patient awake, moves all extremities and no focal motor deficits Cognition: normal cognition Speech: speech normal Gait: normal gait Sensory Exam: no sensory deficits noted Psych Appearance: grossly normal Mental Status: mental status grossly normal Course Vital Signs Vital signs: Vital Signs Temperature 36.8 C 09/30/20 10:28 Pulse 79 09/30/20 10:28 Respiratory Rate 16 09/30/20 10:28 Blood Pressure 119/57 L 09/30/20 10:28 Pulse Oximetry 97 09/30/20 10:28 Temperature 36.8 C 09/30/20 10:28 Temperature Source Skin 09/30/20 10:28 Pulse 79 09/30/20 10:28 Respiratory Rate 16 09/30/20 10:28 Respiratory Effort Non-Labored 09/30/20 10:38 Blood Pressure 119/57 L 09/30/20 10:28 Blood Pressure Position Sitting 09/30/20 10:28 Pulse Oximetry 97 09/30/20 10:28 Oxygen Delivery Method Room Air 09/30/20 10:28 Oxygen Flow Rate 0 09/30/20 10:28 Pain Level 4 09/30/20 10:28
--- NOTE | 2020-10-01 11:40 | CMPROGNOTE_ITS ---
- If Service Date Differs Date of service: 10/01/20 Time of Service: 11:40 Care Management Progress Note Chepe is seen in the ED on 09/29/20 and again on 09/30/20 for abdominal pain. At the request of ED provider, NARGIS coordinates a referral to BRENNON Magdaleno, of [facility], to assist Chepe in obtaining a follow up appointment and in establishing care with a PCP. He has Medicaid for insurance.
== END 2020-09-30 11:30 | disposition home or self-care (01) ==
LOC: ER 11:33
PROVIDERS: Emergency Provider Physician Assistant
DX: R16.2 Hepatomegaly with splenomegaly, not elsewhere classified (principal); R93.5 Abnormal findings on diagnostic imaging of other abdominal regions, including retroperitoneum; Z71.2 Person consulting for explanation of examination or test findings

== ENCOUNTER 2020-09-30 12:09 | Outpatient (CLI) | payer MEDICAID, SELFPAY ==
--- NOTE | 2020-09-30 | DI.US_ITS ---
EXAM: US ABDOMEN CLINICAL HISTORY: POST PRANDIAL ABD PAIN TECHNIQUE: Ultrasound abdomen performed using standard protocol. COMPARISON: No exams were available for comparison FINDINGS: ABDOMINAL AORTA AND IVC: Visualized portions normal caliber. There is no ascites. Liver is slightly prominent in size and hyperechoic indicating an element of st eatosis. No discrete focal hepatic lesions evident on these images. There is some sludge seen withi n the gallbladder. No shadowing gallstones. Gallbladder wall thickness is upper normal. Common hep atic duct is not dilated measuring 4-5 millimeters. Pancreas is not well seen due to overlying bowel gas. Spleen is enlarged, measuring 16.8 centimetres in length. In addition, of there is a 17 x 11 x 15 millimeter hypoechoic area within the spleen which appears to be intimately related to a complex collection along the peripheral aspect of the spleen. Both kidneys appear unremarkable. No hydronephrosis. No renal masses. No calculi. IMPRESSION: Splenomegaly. In addition, there is a possible fluid collection adjacent to the spleen as described above. No generalized ascites evident. Liver is slightly prominent and is hyperechoic indicating steatosis. No discrete focal hepatic lesio ns identified. No dilatation of the biliary tree. Gallbladder sludge but no calculi. Pancreas is not well seen on this study due to overlying bowel gases. Contrast infused CT scan recommended. DATA REPOSITORY:
== END 2020-09-30 12:29 ==
PROVIDERS: Visit Provider Emergency Medicine
DX: R16.1 Splenomegaly, not elsewhere classified (principal); K76.0 Fatty (change of) liver, not elsewhere classified
CPT/HCPCS: 76700

== ENCOUNTER 2020-10-03 10:45 | Emergency (ER) | payer MEDICAID, SELFPAY ==
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
[2020-10-03 10:49] VITALS: BP 120/54; PULSE 99; RESP 16; TEMP 36; O2SAT 100
--- NOTE | 2020-10-03 11:00 | ED.GENADUL_ITS ---
Discharge Plan Disposition Patient Disposition: OTHER Discharge Details Clinical Impression: Eloped from emergency department Primary Care Provider: None,None ED Provider: Alexis Kim Home Meds and New Rx's Prescriptions: No Action No Known Home Meds RF: 0 Medical Decision Making 29-year-old male IV drug user presents with 2 days of left perirectal pain and swelling. He is known to me from a visit to the emergency department on September 29 when he was treated for GERD, found to have a transaminitis and underwent subsequent acute hepatitis testing. Today, patient informed that from that visit he has evidence of acute hep C infection. Patient is afebrile, there is evidence of developing cellulitis left perianal region. IV access established, labs obtained, patient referred for CT imaging. CT reveals evidence of old splenic hematoma as well as left perianal abscess measuring 4 x 1.3 cm which seems similar to that last image in 2019. See formal report. Hemoglobin has increased since last visit and is now 14. Platelets are 311. Note of white count 16. Patient absconded from the emergency department prior to discussion of CT findings. [facility] police were contacted for a well person check. HPI General Mode of arrival: ambulatory . Date/Time Provider Initiated Documentation: 10/03/20 10:46 . Limitations to Documentation: no limitations . Information obtained by: patient . History of Present Illness 29 year old M presents to the emergency department with the chief complaint of Left perirectal abscess, pain, Quality is described as dull and constant, and is localized to the buttocks and left. Patient reports no radiation. Patient started experiencing this day(s) and it has been constant. No relieving factors improve symptom(s), No exacerbating factors reported . Patient notes denies fever/chills and nausea/vomiting. Patient did receive the following treatments prior to arrival, none Related Data Home Medications Medication Instructions Recorded Confirmed Unknown [No Known Home Meds] 10/03/20 10/03/20 Allergies Allergy/AdvReac Type Severity Reaction Status Date / Time No Known Allergies Allergy Unverified 10/03/20 10:55 General Stated Complaint: Cellulitis CARLY: 4 Review of Systems Narrative: Stop taking Protonix. Continues to use IV drugs. No fever. No abdominal pain. Recent negative COVID-19 test. 6 systems reviewed and otherwise negative [facility] Surgical History S/P ORIF (open reduction internal fixation) fracture right tib/fib Social History Smoking/Tobacco Use Status: Current every day Tobacco Type: cigarettes Smoking risk assessment performed?: Yes Alcohol Intake: current Alcohol Intake frequency: a few times a month Drug use: Daily Substance use type: marijuana, crack/cocaine, heroin, amphetamines, hallucinogens and prescription drug Details: Current IVDA Do you feel safe at home: Yes Do you feel safe in your relationship?: Yes Exam Narrative Exam Narrative: GEN: awake, alert, oriented 3. Pleasant, well groomed, interactive. HEAD: Normocephalic, atraumatic ENT: Mucous membranes moist, External ear exam unremarkable EYES: PERRL, EOMI NECK: Full ROM, no HUNTER, no menigismus CHEST/RESP: Nontender, clear to auscultation bilateral, no wheeze/rhonchi/rales CARDIOVASCULAR: RRR, no murmur, rub ariana. 2+ Rad pulse bilateral ABDOMEN: Soft, nontender, no mass. +Bowel sounds. Left superior perirectal swelling and tenderness to palpation. EXT: Full ROM, no edema, no rash Neuro: Grossly normal neurologic exam, conversant, interactive. Psych: Speech fluent, thoughts congruent, affect normal Course Vital Signs Vital signs: Vital Signs Temperature 36.0 C L 10/03/20 10:49 Pulse 99 H 10/03/20 10:49 Respiratory Rate 16 10/03/20 10:49 Blood Pressure 120/54 L 10/03/20 10:49 Pulse Oximetry 100 10/03/20 10:49 Temperature 36.0 C L 10/03/20 10:49 Temperature Source Temporal Artery Scan 10/03/20 10:49 Pulse 99 H 10/03/20 10:49 Respiratory Rate 16 10/03/20 10:49 Respiratory Effort 10/03/20 10:52 Blood Pressure 120/54 L 10/03/20 10:49 Blood Pressure Position Standing 10/03/20 10:49 Pulse Oximetry 100 10/03/20 10:49 Oxygen Delivery Method Room Air 10/03/20 10:49 Oxygen Flow Rate 0 10/03/20 10:49 Pain Level 10 10/03/20 10:49
[2020-10-03] MEDS: Omnipaque 350 MG/ML 50 ML BTL IJ (11:17)
[2020-10-03 11:33] LABS: Abs Immature Grans 0.07 10^3/uL (0.0-0.06); Absolute Basophil Count 0.02 10^3/uL (0.0-0.2); Absolute Eosinophil Count 0.14 10^3/uL (0.0-0.7); Absolute Monocyte Count 0.87 10^3/uL (0.1-0.8); Basophils % 0.1; Eosinophils % 0.9; HCT 43.2 % (40.0-50.0); HGB 14.3 g/dL (13.5-17.5); Immature Grans % 0.4; Lymphocytes % 10.3; MCH 29.2 pg (27.0-33.0); MCHC 33.1 % (32.0-36.0); MCV 88.2 fL (80-95); MPV 9.4 fL (8.0-11.0); Monocytes % 5.4; Neutrophils % 82.9; Nucleated RBC 0 %; Platelet Count 311 10^3/uL (130-400); RDW 13.1 % (11.8-14.1); RDW-SD 42.3 fL; WBC 16.05 10^3/uL (4.4-10.8)
[2020-10-03 11:38] LABS: Absolute Lymphocyte Count 1.65 10^3/uL (1.2-3.4); Absolute Neutrophil Count 13.31 10^3/uL (1.2-6.7)
[2020-10-03] MEDS: Normal Saline 1,000 ML 125 ML IV (11:40)
[2020-10-03] MEDS: Lidocaine/Prilocaine Cream 5 GM TUBE TP (11:40)
[2020-10-03 11:46] LABS: ALT 72 U/L (16-63); AST 17 U/L (15-37); Albumin 3.7 g/dL (3.4-5.0); Alkaline Phosphatase 105 U/L (46-116); Anion Gap 6.6 mmol/L (3-11); BUN 7 mg/dL (7-18); Bilirubin, Total 0.4 mg/dL (0.2-1.0); CO2 29.4 mmol/L (21.0-32.0); CREATININE 0.99 mg/dL (0.70-1.30); Calcium 9.6 mg/dL (8.5-10.1); Chloride 104 mmol/L (98-107); Glucose 90 mg/dL (74-106); Potassium 3.8 mmol/L (3.5-5.1); Sodium 140 mmol/L (136-145); Total Protein 8.7 g/dL (6.4-8.2)
--- NOTE | 2020-10-03 12:12 | NUR.NOTE ---
Nursing Note: Referrals to establish PCP and for follow up at [facility] was given to Care Management. Leigha Rose
[2020-10-03] MEDS: Normal Saline - Diluent 50 ML VIAL IV (13:03)
[2020-10-03] MEDS: Omnipaque 350 MG/ML 100 ML BTL IJ (13:04)
[2020-10-03] MEDS: Breeza Beverage 473 ML BTL PO ×2 (13:15→13:16)
--- NOTE | 2020-10-03 13:51 | NUR.NOTE ---
pt noted to be gone with iv in place to lt upper arm. md aware, ed director aware. :
--- NOTE | 2020-10-03 14:02 | NUR.NOTE ---
[facility] police notified of pt elopement with iv in place. will try to locate pt and return him for iv removal.:
== END 2020-10-03 13:53 | disposition other institution (70) ==
PROVIDERS: Emergency Provider Emergency Medicine
DX: K61.1 Rectal abscess (principal); Z53.29 Procedure and treatment not carried out because of patient's decision for other reasons; F19.10 Other psychoactive substance abuse, uncomplicated
CPT/HCPCS: 36415; 80053; 96360; 96361; 99285; 74177; 85025; 99284; J3490; Q9967

== ENCOUNTER 2020-10-03 22:46 | Emergency (ER) | payer MEDICAID, SELFPAY ==
[2020-10-03 22:49] VITALS: BP 112/66; PULSE 92; RESP 16; TEMP 37.5; O2SAT 96
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
--- NOTE | 2020-10-03 23:24 | NUR.NOTE ---
Nursing Note: left instruction with ashok luz on to make appointmernt for patient with surgery that day
[2020-10-03] MEDS: Sulfameth/Trimeth DS TAB 1 TAB PO (23:30)
== END 2020-10-03 23:35 | disposition home or self-care (01) ==
PROVIDERS: Emergency Provider Physician Assistant
DX: K61.1 Rectal abscess (principal); B96.20 Unspecified Escherichia coli [E. coli] as the cause of diseases classified elsewhere; B95.4 Other streptococcus as the cause of diseases classified elsewhere; R93.5 Abnormal findings on diagnostic imaging of other abdominal regions, including retroperitoneum; B17.10 Acute hepatitis C without hepatic coma; F19.10 Other psychoactive substance abuse, uncomplicated
CPT/HCPCS: 10061; 87077; 87070; 87186; 87205

== ENCOUNTER 2021-05-15 20:06 | Emergency (ER) | payer MEDICAID, SELFPAY ==
[2021-05-15 20:07] VITALS: BP 150/80; PULSE 104; RESP 22; TEMP 36.5; O2SAT 100
--- NOTE | 2021-05-15 20:15 | DI.RAD_ITS ---
Exam(s) XR FINGER RT MIDDLE EXAM: XR FINGER RT MIDDLE CLINICAL HISTORY: distal injury, pain. TECHNIQUE: 2D digital imaging was performed. COMPARISON: No exams were available for comparison FINDINGS: Gauze overlies the finger. A soft tissue defect is seen. There is a comminuted fracture of the dist al phalanx. There is a full shaft with displacement as well as angulation. There are small comminut ed fragments. The fracture extends to the articular surface but there is no significant separation a t the articular surface. No radiopaque foreign body. IMPRESSION: Comminuted fracture of the distal phalanx. DATA REPOSITORY: RADIATION DOSE DELIVERED:
--- NOTE | 2021-05-15 20:18 | ED.GENADUL_ITS ---
Discharge Plan Disposition Patient Disposition: HOME Condition: Improving Discharge Details Chief Complaint: Laceration Clinical Impression: Fracture of finger, distal phalanx, right, open Primary Care Provider: None,None ED Provider: Alexis Kim Home Meds and New Rx's Prescriptions: No Action sulfamethoxazole-trimethoprim [Bactrim DS] 800-160 mg tablet 1 tab PO BID Qty: 20 RF: 0 Discharge Instructions Instructions: Finger Fracture (ED) Additional Instructions: Nothing to eat after midnight. You underwent urgent Covid testing for operative repair tomorrow with Dr. Agrawal from orthopedics. He stated the OR team will call you approximately 7 AM for likely operative repair approximately [address] Agrawal will discuss the procedure with you tomorrow. Medical Decision Making Healthy 30-year-old male reached down to his mower deck when his right hand was struck by the mower blade. On the distal volar/radial aspect of his right long finger there is a deep laceration with deviation of the distal portion. Nailbed is intact. He has sensation but cannot discriminate 2 points. Motor intact but limited by pain. Patient underwent digital block, was given ibuprofen and referred for x-ray. There is a comminuted fracture of the right long finger distal phalanx. I reviewed the x-ray and discussed the case with Dr. Agrawal. After liberal irrigation, I gently manipulated the distal portion of the finger, covered with Vaseline gauze, Kerlix, and AlumaFoam splint. Patient underwent Covid testing. He was given oral Keflex and his tetanus status updated. He will receive a call proximally 7 AM tomorrow for probable OR time approximately 9 AM for definitive reduction of his open fracture. HPI General Mode of arrival: ambulatory . Date/Time Provider Initiated Documentation: 05/15/21 20:08 . Limitations to Documentation: no limitations . Information obtained by: patient . History of Present Illness 30 year old M presents to the emergency department with the chief complaint of R long finger injury, described as moderate, Quality is described as dull and constant, and is localized to the right and upper extremity. Patient reports no radiation. Patient started experiencing this minute(s) and it has been constant. No relieving factors improve symptom(s), No exacerbating factors reported . Patient did receive the following treatments prior to arrival, none Related Data Home Medications Medication Instructions Recorded Confirmed sulfamethoxazole-trimethoprim 1 tab PO BID #20 tab 10/03/20 [Bactrim DS] Previous Rx's Medication Instructions Recorded sulfamethoxazole-trimethoprim 1 tab PO BID #20 tab 10/03/20 [Bactrim DS] Allergies Allergy/AdvReac Type Severity Reaction Status Date / Time No Known Allergies Allergy Unverified 10/03/20 10:55 General Stated Complaint: Laceration CARLY: 3 Review of Systems Narrative: No other injury. Tetanus out of date. Otherwise healthy young man. 4 systems reviewed and negative. [facility] Surgical History S/P ORIF (open reduction internal fixation) fracture right tib/fib Social History Smoking/Tobacco Use Status: Current every day Tobacco Type: cigarettes Smoking risk assessment performed?: Yes Alcohol Intake: current Alcohol Intake frequency: a few times a week Substance use type: marijuana and prescription drug Details: Current IVDA Do you feel safe at home: Yes Do you feel safe in your relationship?: Yes Exam Narrative Exam Narrative: GEN: awake, alert, oriented 3. Pleasant, well groomed, interactive. HEAD: Normocephalic, atraumatic ENT: Mucous membranes moist, oropharynx unremarkable, External ear exam unrema rkable EXT: Right long finger distal/volar/radial aspect with deep laceration. Nailbed is intact but displaced at germinal matrix. Distal portion is deviated. Two- point discrimination intact except for the distal portion which has only 1 point discrimination but positive sensation. Capillary refill approximately 1 to 2 seconds Neuro: Grossly normal neurologic exam, conversant, interactive. Psych: Speech fluent, thoughts congruent, affect normal Course Vital Signs Vital signs: Vital Signs Temperature 36.5 C 05/15/21 20:07 Pulse 104 H 05/15/21 20:07 Respiratory Rate 22 05/15/21 20:07 Blood Pressure 150/80 H 05/15/21 20:07 Pulse Oximetry 100 05/15/21 20:07 Temperature 36.5 C 05/15/21 20:07 Pulse 104 H 05/15/21 20:07 Respiratory Rate 22 05/15/21 20:07 Respiratory Effort Non-Labored 05/15/21 20:10 Blood Pressure 150/80 H 07/15/21 20:07 Pulse Oximetry 100 05/15/21 20:07 Oxygen Delivery Method Room Air 05/15/21 20:07 Oxygen Flow Rate 0 05/15/21 20:07 Pain Level 10 05/15/21 20:07
[2021-05-15] MEDS: Ibuprofen 800 MG TAB PO (20:21)
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
[2021-05-15 21:10] LABS: Source Nasal/Nares
[2021-05-15] MEDS: Cephalexin 500 MG CAP, 4 CAPS/BTL PO (21:17)
[2021-05-15 21:18] VITALS: BP 133/82; PULSE 82; RESP 22; TEMP 36.5; O2SAT 99
[2021-05-15 22:02] LABS: COVID-19 PCR Negative (Negative)
--- NOTE | 2021-05-20 09:24 | NUR.NOTE ---
Nursing Note: Unavailable by phone. Letter sent with Negative Covid result.
== END 2021-05-15 21:15 | disposition home or self-care (01) ==
PROVIDERS: Emergency Provider Emergency Medicine
DX: S62.632B Displaced fracture of distal phalanx of right middle finger, initial encounter for open fracture (principal); W28.XXXA Contact with powered lawn mower, initial encounter
CPT/HCPCS: 29130; 87635; 90471; 99284; 73140

== ENCOUNTER 2021-05-16 09:18 | Day surgery (SDC) | payer MEDICAID, SELFPAY ==
[2021-05-16 09:34] VITALS: BP 120/74; PULSE 85; RESP 16; TEMP 36; O2SAT 98
[2021-05-16] MEDS: Lactated Ringers 1,000 ML 30 ML IV (09:56)
--- NOTE | 2021-05-16 10:03 | W.ANESPRE ---
General Info Date of Service Date Performed: 05/16/21 Height: 6 ft Weight: 78.9 kg Body Mass Index (BMI): 23.6 Surgical Procedure: Operation Date: 05/16/21 11:40 Proposed Procedures Side Surgeon p irrigation and debridement rt long finger Right Francois Agrawal MD s possible percutaneous pinning and possible tendon repair Right Francois Agrawal MD Pre-Op Diagnosis Post-Op Diagnosis FX/LACERATION RIGHT LONG FINGER Meds Allergies and Home Medications Allergies Allergy/AdvReac Type Severity Reaction Status Date / Time No Known Allergies Allergy Verified 05/16/21 09:32 Home Medication Medication Instructions Recorded sulfamethoxazole-trimethoprim 1 tab PO BID #20 tab 10/03/20 [Bactrim DS] Current Visit Medications: Current Medications Generic Name Dose Route Start Last Admin Trade Name Freq PRN Reason Stop Dose Admin Ringer's Solution 1,000 mls @ 30 mls/hr 05/16/21 06:00 05/16/21 09:56 IV 06/15/21 23:59 30 mls/hr INFUSION EULALIA Administration Cefazolin Sodium/Dextrose 2 gm in 50 mls @ 100 mls/hr 05/16/21 06:00 Ancef Duplex IVPB 05/16/21 18:00 PREOP EULALIA IV Miscellaneous Supplies 1 each 05/16/21 06:00 Iv Access IV 06/15/21 23:59 DIRECTED EULALIA Sodium Chloride 0 ml 05/16/21 06:00 Normal Saline Flush 10 Ml Syr IV 06/15/21 23:59 PRN PRN Sodium Chloride 0 ml 05/16/21 06:00 Normal Saline 10 Ml Vial IJ 06/15/21 23:59 DIRECTED PRN Sterile Water 0 ml 05/16/21 06:00 Water,Injection,Sterile 10 Ml Vial IJ 06/15/21 23:59 DIRECTED PRN PFSH Active Problems Active Problems: Problem Status Onset Code Fracture of finger, distal phalanx, right, open S62.639B Surgical History Surgical History S/P ORIF (open reduction internal fixation) fracture right tib/fib Tobacco Smoking/Tobacco Use Status: Current every day Tobacco Type: cigarettes Tobacco: How many years used: 10 Alcohol Alcohol Intake: current Alcohol intake frequency: a few times a week Substance Use Substance use: Daily Substance use type: marijuana, heroin and prescription drug Details: Current IVDA IV heroin taken this morning at 0700 Vital Signs and Lab Results Vital Signs Most Recent Vital Signs in EMR: Most Recent Vital Signs Temp Pulse Resp BP Pulse Ox 36.0 C L 85 16 120/74 98 05/16/21 09:34 05/16/21 09:34 05/16/21 09:34 05/16/21 09:34 05/16/21 09:34 Lab Results Blood Type / Crossmatch: No Data to Display Complete Blood Count: No Data to Display Complete Metabolic Panel: No Data to Display Liver Function Panel: No Data to Display Coagulation Panel: No Data to Display Cardiac Panel: No Data to Display Arterial Blood Gas: No Data to Display Venous Blood Gas: No Data to Display Pancreas Panel: No Data to Display Thyroid Panel: No Data to Display Infectious Disease: Coronavirus (COVID-19)(PCR) Negative (Negative) 05/15/21 21:05 05/15/21 Coronavirus 2019 Source Nasal/Nares 05/15/21 21:05 05/15/21 Blood Cultures: No Data to Display Toxicology Panel: Urine Amphetamines Screen Negative (Negative) 05/16/21 10:16 05/16/21 Urine Benzodiazepines Screen Negative (Negative) 05/16/21 10:16 05/16/21 Urine Barbiturates Screen Negative (Negative) 05/16/21 10:16 05/16/21 Urine Cocaine Screen Positive (Negative) A 05/16/21 10:16 05/16/21 Urine Methadone Screen Negative (Negative) 05/16/21 10:16 05/16/21 Urine Opiates Screen Positive (Negative) A 05/16/21 10:16 05/16/21 Ur Tricyclic Antidepressants Screen Negative (Negative) 05/16/21 10:16 05/16/21 Ur Tetrahydrocannabinol (THC) Scrn Positive (Negative) A 05/16/21 10:16 05/16/21 Anesthesia Assessment and Plan Anesthesia History Personal History: No History of Anesthesia Complications Family History: No Family History of Anesthesia Complications Exercise Tolerance Exercise Tolerance: Metabolic Equivalents>4 Pertinent Negatives Pertinent Negatives: No Symptoms of GERD, No Major Cardiovascular Symptoms or Complaints (Denies complaint r/t Vsd), No Major Pulmonary Symptoms or Complaints and No History of CVA/TIA Cardiac & Pulmonary Exam Cardiac Exam: Normal S1/S2 Heart Sounds Pulmonary Exam: Clear Bilateral Breath Sounds Airway Exam Known Difficult Airway: No Mallampati Class: 2 Mouth Opening: Normal (> 3cm) Thyromental Distance: Greater than 3 cm Neck Range of Motion: Full ROM Neck Circumference: Normal Teeth Condition: Normal Dentition ASA Classification ASA Score: ASA 2 Emergency Case?: No NPO Status NPO Status: NPO Clears >2 hours, Solids >8 hours Anesthesia Plan Resuscitation Status: Full Code Anesthesia Technique: MAC Anesthesia Airway Planned: Natural Airway Monitors Used: Standard Monitors Preoperative Comments:: IV heroine at 0700 per patient. Tested positive for cocaine, THC, and Opioids. Discussed with Dr. Agrawal, if elective patient is local only. Dr. Agrawal agreed to proceed locally.
[2021-05-16 10:52] LABS: *AMPHETAMINES SCREEN URINE Negative (Negative); *BARBITURATES SCREEN URINE Negative (Negative); *BENZODIAZEPINES SCREEN URINE Negative (Negative); Cannabinoids THC Positive (Negative); Cocaine Screen,Urine Positive (Negative); METHADONE URINE SCREEN Negative (Negative); OPIATES URINE SCREEN Positive (Negative)
[2021-05-16 10:54] LABS: Tricyclic Antidepressants Negative (Negative)
--- NOTE | 2021-05-16 12:45 | DI.RAD_ITS ---
Exam(s) XR HAND RT LIMITED EXAM: XR HAND RT LIMITED CLINICAL HISTORY: FX RIGHT MIDDLE FINGER. TECHNIQUE: 2D and realtime digital imaging was performed. COMPARISON: CR,XR XR FINGER RT MIDDLE from 05/15/2021 CR,XR XR FINGER RT MIDDLE from 05/15/2021 FINDINGS: A soft tissue laceration and comminuted fracture of the distal phalanx are again noted. The alignmen t is improved when compared with pre reduction films. Please see procedure note for details. Fluoro time 6.2 seconds RADIATION DOSE DELIVERED: chey Mendez=0.11 mGy
[2021-05-16 12:52] VITALS: BMI 23.6
--- NOTE | 2021-05-16 12:55 | W.PM.HP.N ---
Date of service: 05/16/21 Time of Service: 12:30 Assessment and Plan Assessment and plan (1) Fracture of finger, distal phalanx, right, open: Status: Acute Assessment and plan: 30-year-old male with right hand long finger open distal phalanx fracture widely displaced and contaminated. Complicated situation. Unfortunately, active polysubstance abuse including heroin, cocaine, and THC this morning and yesterday. Also active nicotine abuse/smoker. Discussed options going forward at length with the patient who appears sober enough and asked appropriate questions. He was open about his illicit drug use. Do not recommend anesthesia on the same day as IV drug abuse. Patient confident he can tolerate and will participate in optimizing his care with local anesthesia and procedure today. Obviously heightened risk for complication including but not limited to pain control issues, infection, failure, loss of function, loss of digit, and noncompliance. Discussed potential future need for referral to tertiary care facility for higher level of care and/or hand surgeon evaluation. At this time, patient wishes to proceed with the more urgent care, which includes irrigation debridement, distal phalanx likely open reduction and percutaneous pinning. The risks, benefits, and alternatives were thoroughly discussed. Patient was counseled regarding pain management, expected postoperative course, and recovery timeline. All questions were answered. Informed consent was obtained. Agree and understand treatment plan. Follow up next week for wound check. Will call if any changes or concerns Qualifiers: Encounter type: initial encounter Finger: middle finger Fracture alignment: displaced Qualified Code(s): S62.632B - Displaced fracture of distal phalanx of right middle finger, initial encounter for open fracture History of Present Illness Narrative: 30-year-old male right hand versus lawnmower blade yesterday. Presented to emergency department found to have displaced fracture angulated and open wound of the right long finger distal phalanx. Questionable sensation. Likely intact flexor and extensor tendons although testing limited. Given local wound care, tetanus update, Covid test, antibiotic dose and instructed to follow-up as outpatient for day surgery today. Unfortunately, although patient remained n.p.o. he did use IV drugs as he routinely does including heroin this morning. Tox screen shows cocaine, heroin, and THC. Admits to THC Gummies yesterday as well. He states he is not sure about the cocaine. He feels sober to proceed with exam and discussion regarding surgery. Review of Systems All systems reviewed & are unremarkable except as noted in HPI and below PFSH Surgical History S/P ORIF (open reduction internal fixation) fracture right tib/fib Social History Smoking/Tobacco Use Status: Current every day Tobacco Type: cigarettes Tobacco: How many years used: 10 Smoking risk assessment performed?: Yes Alcohol Intake: current Alcohol Intake frequency: a few times a week Drug use: Daily Substance use type: marijuana, heroin and prescription drug Details: Current IVDA IV heroin taken this morning at 0700 Do you feel safe at home: Yes Do you feel safe in your relationship?: Yes Meds Allergies and Home Medications Allergies Allergy/AdvReac Type Severity Reaction Status Date / Time No Known Allergies Allergy Verified 05/16/21 09:32 Home Medications Medication Instructions Recorded Confirmed Type sulfamethoxazole-trimethoprim 1 tab PO BID #20 tab 10/03/20 Rx [Bactrim DS] Exam Narrative Exam Narrative: Patient appears somewhat remorseful and tired although not intoxicated Breathing comfortably on room air. Does not exhibit any diaphoresis, chest pain, or acute distress. Right right hand and all digits warm and well-perfused. Significantly dull sensation about distal aspect long finger. Displaced angulated malrotated distal phalanx to fracture. Nail plate intact. Large wound with gapping of wound edges no active bleeding or signs of early infection about 270 degrees around avoiding the ulnar volar aspect. 2+ right radial pulse. Regular rate and rhythm. Results Imaging Imaging Studies: X-rays show displaced flexed and angulated distal phalanx fracture with intact proximal aspect and base without any flexion or extension deformity hopefully intact to flexor and extensor tendons. Labs Labs: Laboratory Results - last 24 hr 05/16/21 10:16 Urine Opiates Screen Positive A Urine Methadone Screen Negative Ur Barbiturates Screen Negative Ur Tricyclics Screen Negative Ur Amphetamines Screen Negative U Benzodiazepines Scrn Negative Urine Cocaine Screen Positive A Ur THC Screen Positive A Last Vital Signs Temp 96.8 F L 05/16/21 09:34 Pulse 85 05/16/21 09:34 Resp 16 05/16/21 09:34 BP 120/74 05/16/21 09:34 Pulse Ox 98 05/16/21 09:34
[2021-05-16] MEDS: ceFAZolin 2 GM/50 ML BAG IVPB (13:11)
[2021-05-16] MEDS: Sodium Bicarbonate 50 MEQ/50 ML VIAL (13:12)
[2021-05-16 14:05] VITALS: BP 119/72; PULSE 81; RESP 15; TEMP 36.5; O2SAT 98
--- NOTE | 2021-05-16 14:29 | PDOC.DSDIS_ITS ---
Discharge Plan Disposition Patient Disposition: HOME Condition: Stable Discharge Details Reason For Visit: Right finger surgery Attending Provider: Francois Agrawal Primary Care Provider: None,None Home Meds and New Rx's Prescriptions: New cephalexin 500 mg tablet 500 mg PO Q12H 3 Days Qty: 6 RF: 0 naproxen 250 mg tablet 250 - 500 mg PO BID PRN (Reason: Moderate pain or swelling) Qty: 30 RF: 0 Discontinued sulfamethoxazole-trimethoprim [Bactrim DS] 800-160 mg tablet 1 tab PO BID Qty: 20 RF: 0 Discharge Instructions Additional Instructions: Surgery: Right long finger distal phalanx irrigation, debridement, nailbed/plate repair, and open reduction of fracture Activity: Please protect finger. Recommend ice and elevation to minimize swelling and discomfort. Keep clean and dry until follow-up. May bend and straighten gently as comfort allows. Prescriptions: Cephalexin 500 mg take 1 every 12 hours as an antibiotic to prevent infection for 3 days Naproxen 250 mg take 1-2 every 12 hours with a meal as needed for moderate pain You may use [id number] Tylenol (acetaminophen) as needed for mild pain. Dressings: Leave splint and dressing in place until follow-up. Keep clean and dry at all times. Follow-up: Next week at [facility] orthopedics to check the wound. The office will call you Wednesday to arrange an appointment. Let us know right away if you develop any redness, drainage, fevers, chest pain, or trouble breathing. Do not drink alcohol or drive for at least 24 hours after anesthesia. Please call the office during business hours with any questions or concerns. Referrals: Francois Agrawal MD [ [facility] STAFF PHYSICIAN] - DS: Diagnosis Discharge Diagnosis (1) Fracture of finger, distal phalanx, right, open: Status: Acute
--- NOTE | 2021-05-16 14:32 | ROE_ITS ---
Date of service: 05/16/21 Time of Service: 14:00 Operative Note Operative Note DATE OF PROCEDURE: 05/16/21 PRE-OP DIAGNOSIS: 1. Displaced, open fracture right long finger distal phalanx 2. Nailbed/plate avulsion POST-OP DIAGNOSIS: same PROCEDURE: 1. Open treatment right long finger distal phalanx fracture, CPT #59954 2. Irrigation and debridement of open fracture including skin, subcutaneous tissue, and bone, CPT 79503 3. Nailbed/plate repair, CPT #58029 SURGEON: Francois Agrawal HELPER MARBLE FINISHER: Carlos Morales ANESTHESIA TYPE: Local By Surgeon Refer to Anesthesia Record ESTIMATED BLOOD LOSS: 3 PATHOLOGY: none sent TOURNIQUET TIME: 0 COMPLICATIONS: None Patient was transported to: PACU Patient's condition: stable Implants: None Indications: Please see complete medical record for details. Findings: Grossly contaminated, widely displaced distal phalanx open fracture with proximal nailbed/plate disruption from germinal matrix and eponychial fold. Procedure Description: The patient was positioned supine on the operating room table. All bony prominences were well-padded. Preoperative antibiotics were administered. The correct patient, procedure, and side of the procedure were all verified prior to beginning. Local anesthesia was induced with 1% lidocaine with epinephrine and sodium bicarbonate 15 cc as a digital block. The right hand was prepped and draped in the usual sterile fashion with ChloraPrep the exception of the wound about the distal long finger, which was prepped with Betadine. The wound was examined and as previously described encompassed about 270 degrees of the dorsal radial and volar distal phalanx with widening and gross contamination from this lawnmower blade injury. The nail bed disrupted proximally about 75% of the way across to the ulnar side with near complete avulsion of the nail plate from the eponychial fold. There was loss of tissue about the eponychial fold and germinal matrix centrally and radially. There is no active bleeding. The wound was opened with Metzenbaum scissors. The wound was explored. Childwold lavage normal saline cystoscopy's tubing was used to provisionally irrigate all layers of the wound from skin and subcutaneous tissue down to bone. The open fracture site was then debrided using sharp and blunt dissection of nonviable skin and contamination attached to the skin, sub cutaneous tissue, and bone. The site was then irrigated thoroughly with bulb syringe as well as gravity irrigation. Once 2 L of irrigant had been used, fresh gloves and drapes were applied under the hand. The digit was swirled in a 5050 mixture of Betadine and saline and then thoroughly irrigated again. There was adequate hemostasis. The distal aspect of distal phalanx was manipulated in the wound into position correcting the flexion deformity and alignment with the proximal aspect of the distal phalanx. The skin radially was repaired using a 2-0 Monocryl in a simple fashion and the digit held in extension provisionally maintaining reduction. Provisional reduction was confirmed to be appropriate on AP and lateral fluoroscopy. Attention was then turned to the nailbed and plate injury. The nonviable part of the eponychial fold was sharply removed. The nail plate had to be removed radially and proximally to appropriately reapproximate the nailbed. A horizontal mattress 2-0 Monocryl suture technique was used in the proximal radial as well as proximal central junction of the nail plate and eponychial fold remnant appropriately reducing the nailbed and nail plate to provide best chance of germinal matrix healing and new nail formation. Final AP and lateral fluoroscopy confirmed appropriate fracture reduction. The nail plate was reasonably opposed accounting for tissue loss. The radial aspect of the wound was well approximated leaving room for swelling and drainage about both sides of the radial repair stitch. The patient who was awake was able to demonstrate a small flicker of active flexion and extension at the distal phalanx so the wound was not explored more proximally given the likelihood of tendon extensor and flexor being intact. The entire digit was copiously irrigated with normal saline. Xeroform was applied over the wound followed by 4 x 4 gauze and the digit was wrapped in tube gauze. The patient tolerated local anesthesia without complication and was transferred back to the day surgery unit in a stable condition.
== END 2021-05-16 15:15 | disposition home or self-care (01) ==
PROVIDERS: Visit Provider Student in an Organized Health Care Education/Training Program
PROC: (CPT 26765; principal; 2021-05-16 11:30)
DX: S62.632B Displaced fracture of distal phalanx of right middle finger, initial encounter for open fracture (principal); W31.89XA Contact with other specified machinery, initial encounter; F17.210 Nicotine dependence, cigarettes, uncomplicated; F11.10 Opioid abuse, uncomplicated; F14.10 Cocaine abuse, uncomplicated; F12.10 Cannabis abuse, uncomplicated
CPT/HCPCS: 26765; 11760; 11012; 80307; 73120; J0690